=== PATIENT | female | born 1995 ===

== ENCOUNTER 2023-03-20 15:17 | Emergency (ER) | payer SELFPAY ==
[~2023-03-20] VITALS: Ht 162.6 cm; Wt 77.3 kg
[2023-03-20 15:24] VITALS: TEMP 97.9
[2023-03-20 16:14] LABS: COLLECTION METHOD CLEAN CATCH
[2023-03-20 16:22] LABS: URINE APPEARANCE Clear (CLEAR/HAZY); URINE BLOOD 2+ (NEGATIVE); URINE COLOR Yellow (YELLOW); URINE GLUCOSE Negative (NEGATIVE); URINE KETONE Negative (NEGATIVE); URINE NITRATE Negative (NEGATIVE); URINE PROTEIN(semi-quant) Negative (NEGATIVE); URINE UROBILINOGEN 0.2 E.U/dL (0.2-1.0)
[2023-03-20 16:26] LABS: SQUAMOUS EPITHELIAL 0-2 /hpf (0-10)
[2023-03-20 16:40] LABS: BASO % 0.3 % (0.0-2.0); EOS # 0.1 K/mm3 (0.0-0.7); EOS % 1.2 % (0.0-4.0); GRAN # 6.2 K/mm3 (1.4-6.5); GRAN % 66.6 % (42.2-75.2); HEMATOCRIT 41.3 % (37.0-47.0); HEMOGLOBIN 13.3 g/dl (12.5-16.0); LYMPH # 2.5 K/mm3 (1.2-3.4); LYMPH % 26.5 % (20.0-51.0); MEAN CELL VOLUME 85 fl (80.0-100.0); MEAN CORPUSCULAR HEMOGLOBIN 27 pg (27-31); MEAN CORPUSCULAR HGB CONC 32 g/dl (33.0-37.0); MEAN PLATELET VOLUME 9.7 fl (7.4-10.4); MONO # 0.5 K/mm3 (0.1-0.6); PLATELET COUNT 281 K/mm3 (130-400); RED BLOOD COUNT 4.88 M/mm3 (4.10-5.30)
[2023-03-20 16:59] LABS: ALBUMIN 4.3 gm/dL (3.5-5.0); BILIRUBIN,TOTAL 0.3 mg/dL (0.2-1.2); CALCIUM 9.2 mg/dL (8.4-10.2); CREATININE, serum 0.71 mg/dL (0.57-1.11); POTASSIUM 4.2 mmol/L (3.5-4.5); TOTAL PROTEIN 7.3 gm/dL (6.2-8.1)
[2023-03-20 18:20] VITALS: BP 111/667; PULSE 85
== END 2023-03-20 18:20 | disposition home or self-care (01) ==
LOC: COL.ER 15:17
PROVIDERS: Family Medicine; Physician Assistant
DX: R10.9 Unspecified abdominal pain (principal); Z28.310 Unvaccinated for COVID-19
CPT/HCPCS: J1885; Q9967

== ENCOUNTER 2023-08-15 23:01 | Emergency (ER) | payer MEDICAID ==
[~2023-08-15] VITALS: Ht 165.1 cm; Wt 75.0 kg
[2023-08-15 23:17] LABS: BASO % 0.3 % (0.0-2.0); EOS % 0.2 % (0.0-4.0); GRAN # 6.6 K/mm3 (1.4-6.5); HEMATOCRIT 38.5 % (37.0-47.0); HEMOGLOBIN 12.1 g/dl (12.5-16.0); LYMPH # 2.8 K/mm3 (1.2-3.4); MEAN CELL VOLUME 78 fl (80.0-100.0); MEAN CORPUSCULAR HEMOGLOBIN 24 pg (27-31); MEAN CORPUSCULAR HGB CONC 31 g/dl (33.0-37.0); MEAN PLATELET VOLUME 9.7 fl (7.4-10.4); MONO # 0.4 K/mm3 (0.1-0.6); MONO % 4.2 % (1.7-9.3); PLATELET COUNT 336 K/mm3 (130-400); RED BLOOD COUNT 4.97 M/mm3 (4.10-5.30); REDCELL DISTRIBUTION WIDTH-CV 14.2 % (11.5-14.5)
[2023-08-15 23:25] LABS: COLLECTION METHOD CLEAN CATCH
[2023-08-15 23:36] LABS: ALANINE AMINOTRANSFERASE 17 U/L (0-55); ALBUMIN 4.4 gm/dL (3.5-5.0); ALKALINE PHOSPHATASE 72 U/L (40-150); ANION GAP 14 mmol/L (7-16); AST,SGOT 26 U/L (5-34); BILIRUBIN,TOTAL 0.5 mg/dL (0.2-1.2); BLOOD UREA NITROGEN 11 mg/dL (7-19); CALCIUM 9.5 mg/dL (8.4-10.2); CHLORIDE 107 mmol/L (98-107); CREATININE, serum 0.82 mg/dL (0.57-1.11); GLUCOSE 104 mg/dL (70-99); POTASSIUM 3.8 mmol/L (3.5-4.5); SODIUM 139 mmol/L (136-145); TOTAL PROTEIN 7.6 gm/dL (6.2-8.1)
[2023-08-15 23:37] LABS: ALCOHOL(ethanol),MEDICAL < 10 mg/dL (0-10); SALICYLATE < 5.0 mg/dL (15.0-30.0)
[2023-08-15 23:38] LABS: URINE APPEARANCE CLEAR (CLEAR/HAZY); URINE BLOOD 1+ (NEGATIVE); URINE COLOR YELLOW (YELLOW); URINE GLUCOSE NEGATIVE (NEGATIVE); URINE KETONE TRACE (NEGATIVE); URINE NITRATE POSITIVE (NEGATIVE); URINE PROTEIN(semi-quant) NEGATIVE (NEGATIVE); URINE UROBILINOGEN 0.2 E.U/dL (0.2-1.0)
[2023-08-15 23:45] LABS: TRICYCLIC ANTIDEPRESS URINE NEGATIVE (NEGATIVE)
[2023-08-16 00:03] LABS: URINE RBC 0-2 /hpf (0-2)
[2023-08-16 00:04] LABS: MUCOUS PRESENT (NOT PRESENT); URINE BACTERIA MODERATE /hpf (NONE SEEN)
[2023-08-16 06:17] VITALS: TEMP 98.8
[2023-08-16 10:24] VITALS: BP 108/58; PULSE 82
== END 2023-08-16 10:24 ==
LOC: COL.ER 23:01
PROVIDERS: Nurse Practitioner
DX: T39.1X2A Poisoning by 4-Aminophenol derivatives, intentional self-harm, initial encounter (principal); N93.9 Abnormal uterine and vaginal bleeding, unspecified; Z86.59 Personal history of other mental and behavioral disorders

== ENCOUNTER 2023-12-21 00:02 | Emergency (ER) | payer MEDICAID ==
[~2023-12-21] VITALS: Ht 162.6 cm; Wt 77.3 kg
[2023-12-21] MEDS ORDERED: Ibuprofen 600 MG TAB PO ONE (02:00)
[2023-12-21 02:18] VITALS: BP 129/79; PULSE 85; TEMP 98
== END 2023-12-21 02:29 | disposition home or self-care (01) ==
LOC: COL.ER 00:02
DX: K91.840 Postprocedural hemorrhage of a digestive system organ or structure following a digestive system procedure (principal)

== ENCOUNTER 2024-04-25 12:29 | Emergency (ER) | payer MEDICAID ==
[~2024-04-25] VITALS: Ht 162.6 cm; Wt 77.3 kg
[2024-04-25 12:39] VITALS: BP 136/79; TEMP 98.4
[2024-04-25 13:49] VITALS: PULSE 71
== END 2024-04-25 13:50 | disposition home or self-care (01) ==
LOC: COL.ER 12:29
DX: K08.89 Other specified disorders of teeth and supporting structures (principal)